=== PATIENT | male | born 1950 | race Caucasian/White ===

== ENCOUNTER 2017-07-18 10:00 | Day surgery (SDC) | payer OTHER ==
[~2017-07-18] VITALS: Ht 180.3 cm; Wt 79.1 kg
[2017-07-18 10:25] VITALS: BP 139/71; PULSE 58; RESP 18; TEMP 97.7; O2SAT 97
[2017-07-18] MEDS ORDERED: NAPR250T4 PO (10:28)
[2017-07-18] MEDS ORDERED: CITA20TA4 PO (10:28)
[2017-07-18] MEDS ORDERED: CYAN1TAB24 (10:28)
[2017-07-18] MEDS ORDERED: GABA100C4 PO (10:28)
[2017-07-18] MEDS ORDERED: TRAM50TA PO (10:28)
[2017-07-18] MEDS ORDERED: CLAR10CA3 PO (10:28)
[2017-07-18] MEDS ORDERED: LIPI40TA PO (10:28)
[2017-07-18] MEDS ORDERED: SODIUM CHLOR 0.9% 1000 ML IV SCH (10:30)
[2017-07-18 11:23] LABS: BASOPHIL % 0.4 % (0.0-2.0); EOSINOPHIL # 0.1 TH/MM3 (0-0.4); EOSINOPHIL % 0.9 % (0.0-4.0); HEMATOCRIT 30.4 % (39.0-51.0); HEMOGLOBIN 10.5 GM/DL (13.0-17.0); LYMPH % 30.5 % (9.0-44.0); MEAN CELL VOLUME 107.1 FL (80.0-100.0); MEAN CORPUSCULAR HGB CONC 34.6 % (32.0-36.0); MEAN PLATELET VOLUME 9.7 FL (7.0-11.0); MONO % 7.1 % (0.0-8.0); MONOCYTE # 0.5 TH/MM3 (0-0.9); NEUT % 61.1 % (16.0-70.0); PLATELET COUNT 272 TH/MM3 (150-450); RED BLOOD COUNT 2.83 MIL/MM3 (4.50-5.90); RED CELL DISTRIBUTION WIDTH 25.6 % (11.6-17.2); WHITE BLOOD COUNT 6.5 TH/MM3 (4.0-11.0)
[2017-07-18 11:52] LABS: KERATOCYTES OCC (NORMAL); OVALOCYTES 1+ (NORMAL)
[2017-07-18 11:53] LABS: TOXIC GRANULATION 1+ (NORMAL)
[2017-07-18] MEDS ORDERED: MIDAZOLAM HCL 2 MG/2 ML VIAL ONE ×2 (11:56→12:19)
--- NOTE | 2017-07-18 12:39 | PD.RAD ---
Post CT Procedure Prog Note Pre Procedure Diagnosis: (1) Myelodysplasia (myelodysplastic syndrome) Post Procedure Diagnosis: (1) Myelodysplasia (myelodysplastic syndrome) Procedure Date: Jul 18, 2017 Supervising Radiologist: Porter Stallings Estimated blood loss: minimal Anesthesia: Conscious Sedation Plan of Activity Patient to Unit: ROPU Patient Condition: Good See PACS Report for procedural detail/treatment Biopsy Imaging Guidance: CT Side: Right Biopsy Procedure: Bone Marrow Site: iliac crest Specimen: Core Biopsy Plan to ROPU then discharge in 2 hours. Porter Stallings MD Jul 18, 2017 12:39
[2017-07-18 12:50] VITALS: BP 131/70; PULSE 60; RESP 20; TEMP 97.5; O2SAT 94
[2017-07-18 13:05] VITALS: BP 135/68; PULSE 62; RESP 20; O2SAT 98
[2017-07-18 13:35] VITALS: BP 141/69; PULSE 55; RESP 17; O2SAT 99
[2017-07-18 14:05] VITALS: BP 138/70; PULSE 56; RESP 17; O2SAT 99
--- NOTE | 2017-07-18 14:42 | RADRPT ---
EXAM DATE/TIME: 07/18/2017 12:12 [facility] COMPARISON: No previous studies available for comparison. INDICATIONS : Myelodysplastic syndrome SEDATION TIME: 20 minutes BIOPSY SITE: Right ilium MEDICATION(S): 1.) 2.5 mg midazolam (Versed) IV 2.) 175 mcg fentanyl (Sublimaze) IV DEVICE(S): 1.) 12 gauge On-Control needle MEDICAL HISTORY : Peripheral vascular disease. SURGICAL HISTORY : Discectomy, lumbar. ENCOUNTER: Initial ACUITY: 1 day PAIN SCORE: 0/10 LOCATION: Right pelvis A total of one core specimen(s) were obtained and sent to the laboratory for pathologic evaluation. PROCEDURE: 1. CT guided bone marrow biopsy. Prior to the procedure informed consent was obtained. Any appropriate prior imaging studies were rev iewed. Using automated exposure control and adjustment of the mA and/or kV according to patient size , radiation dose was kept as low as reasonably achievable to obtain optimal diagnostic quality images . DICOM format image data is available electronically for review and comparison. The site was prepped in a sterile fashion. Full sterile technique was used, including cap, mask, tanvi rile gloves and gown and a large sterile sheet. Hand hygiene and 2% chlorhexidine and/or betadine/al cohol prep was utilized per protocol for cutaneous antisepsis. The skin and subcutaneous tissues wer e infiltrated with local anesthetic solution. With CT guidance the previously identified target was localized. Biopsy was performed using the presc ribed needle as above. Following biopsy marrow aspiration was performed with repeat puncture. Adequa te hemostasis was obtained with compression at the puncture site. Conscious sedation was performed with the prescribed dosages and duration as above in the presence of an independent trained radiology nurse to assist in the monitoring of the patient. EKG and oximetry remained stable throughout the procedure. The patient tolerated the procedure well and there were no complications. The patient was sent to Radiology Outpatient Unit in stable condition. CONCLUSION: 1. Uncomplicated CT guided bone marrow aspirate. 2. Uncomplicated CT guided bone marrow biopsy. Porter Stallings MD on July 18, 2017 at 14:39 Board Certified Radiologist. This report was verified electronically.
== END 2017-07-18 14:50 | disposition home or self-care (01) ==
LOC: HRAD 10:00 → HRIP 10:05 → HRAD 14:50
PROVIDERS: ATTEND Internal Medicine Hematology & Oncology
DX: D46.9 Myelodysplastic syndrome, unspecified (principal); I73.9 Peripheral vascular disease, unspecified
CPT/HCPCS: 38222; 77012; 85025; 85097; 88184; 88185; 88237; 88264; 88280; 88305; 88311; 88313; 99152; 99153; J2250; J3010; J7030